=== PATIENT | male | born 1930 | race Asian ===

== ENCOUNTER 2018-05-16 16:38 | Emergency (ER) | payer MEDICARE, BC ==
[~2018-05-16] VITALS: Ht 160 cm; Wt 50.0 kg
[2018-05-16] MEDS ORDERED: ACETAMINOPHEN 500 MG TAB PO STA (16:44)
[2018-05-16 16:45] VITALS: Ht 160 cm; Wt 50.0 kg
--- NOTE | 2018-05-16 16:48 | ERD ---
ER Documentation Chief Complaint Chief Complaint fall with head injury HPI This is a very pleasant 87-year-old gentleman who presents via EMS after mechanical trip and fall. He states that he was at a local [place] and tripped over a chain falling forward. He hit his head on the ground. His only complaint is mild 5 out of 10 throbbing frontal headache. He denies loss of consciousness. No anticoagulation. The patient denies any wrist pain elbow pain arm pain or shoulder pain, no knee pain or ankle pain. Unknown tetanus status. He denies any prodrome of chest pain or shortness of breath. ROS All systems reviewed and are negative except as per history of present illness. Medications Home Meds Reported Medications Febuxostat* (Uloric*) 40 Mg Tablet, 40 MG PO DAILY, TAB 05/16/18 Spironolactone* (Aldactone*) 25 Mg Tablet, 25 MG PO DAILY, #30 TAB 05/16/18 Ropinirole Hcl* (Ropinirole Hcl*) 0.5 Mg Tablet, 0.5 MG PO HS, TAB 05/16/18 Prednisone* (Prednisone*) 5 Mg Tab, 5 MG PO DAILY, TAB 05/16/18 Furosemide* (Furosemide*) 40 Mg Tablet, 40 MG PO DAILY, TAB 05/16/18 Carvedilol* (Carvedilol*) 3.125 Mg Tablet, 3.125 MG PO BID, #60 TAB 05/16/18 Allergies Allergies: Coded Allergies: egg (Verified Allergy, Unknown, 05/16/18) levofloxacin (Verified Allergy, Unknown, 05/16/18) Uncoded Allergies: EMBREL (Allergy, Unknown, 05/16/18) GI CONTRAST (Allergy, Unknown, 05/16/18) SEAFOOD (Allergy, Unknown, 05/16/18) FmHx Family History: No diabetes Physical Exam Vitals Vital Signs Date Temp Pulse Resp B/P (MAP) Pulse Ox O2 O2 Flow FiO2 Time Delivery Rate 05/16/18 98.7 100 16 154/70 99 16:45 (98) Physical Exam Airway is intact Bilateral breath sounds Strong distal pulses No obvious deficits General: Well developed, well nourished, no acute distress Head: Very large abrasion to the frontal forehead. There is an oblique deeper abrasion noted in the superior portion of the abrasion that originally appeared to be a laceration however after thorough irrigation this wound does not open. This is not consistent with a laceration and only a deeper abrasion. No indication for suture or Dermabond repair. Eyes: Pupils equally reactive, EOM intact ENT: Moist mucous membranes abrasion over the nasal bridge without focal tenderness, no tenderness to the mid face, normal jaw opening closing, no dental injury Neck: Supple, no lymphadenopathy, No midline tenderness, deformities, step-offs to the cervical spine, full active and passive range of motion without midline pain. Respiratory: Lungs clear bilaterally, no distress, no chest wall tenderness, no crepitus Cardiovascular: RRR, no murmurs, rubs, or gallops Abdominal: Soft, non-tender, non-distended, no peritoneal signs, pelvis is stable : Deferred MSK: No edema, no unilateral swelling, 5/5 strength, no midline tenderness defor mities or step-offs to the thoracolumbar spine Neurologic: Alert and oriented, moving all extremities, normal speech, no focal weakness, no cerebellar signs Skin: No ecchymoses or bruising to the chest or abdomen Psych: Normal mood Results 24 hrs Current Medications Medications Dose Sig/Valentine Start Time Status Last (Trade) Ordered Route PRN Stop Time Admin Dose Reason Admin Diphtheria/ 0.5 ml ONCE ONCE 05/16/18 DC 05/16/18 Tetanus/Acell IM* 17:00 17:10 Pertussis 05/16/18 17:01 (Adacel) 1,000 mg ONCE STAT 05/16/18 DC 05/16/18 Acetaminophen PO 16:44 17:10 (Tylenol 05/16/18 16:45 Tab) Procedures/MDM EKG, MONITORS, & DIAGNOSTIC IMAGING: CT brain: No acute process per radiologist read CT facial bone: No acute process per radiologist read MEDICAL DECISION MAKING: Very clearly mechanical trip and fall without prodrome or signs or symptoms concerning for syncope, seizure, arrhythmia, stroke. The patient has evidence of large forehead abrasion. Patient will benefit from localized wound care, tetanus to be updated. Based on the patient's age CT imaging of the head and facial bones is appropriate. The patient does not meet high-risk criteria and based on NEXUS cervical spine criteria there is no indication for cervical spine imaging at this time. No evidence of extremity injury. No signs or symptoms concerning for central cord. ER COURSE: * Wound care provided. Tylenol provided. Tetanus updated. * CT imaging is negative for acute injury. * The patient is ambulatory can be safely discharged CONSULTATION: [None] DISPOSITION PLAN: The patient does not have an identifiable emergent medical condition that warrants inpatient hospitalization at this time. The patient is deemed safe for discharge with outpatient follow-up. We discussed follow up with the patient's primary care doctor within 24 to 48 hours as needed. We also discussed return to the emergency room for worsening symptoms or worsening condition. Outpatient referral: [None required] Discharge Medications: Motrin OTC Departure Diagnosis: Primary Impression: Closed head injury Encounter type: initial encounter Qualified Codes: S09.90XA - Unspecified injury of head, initial encounter Additional Impression: Forehead abrasion Encounter type: initial encounter Qualified Codes: S00.81XA - Abrasion of other part of head, initial encounter Condition: Stable ANI GUIDO MD May 16, 2018 16:48
[2018-05-16] MEDS ORDERED: DIPHTH/TET/ACEL PERTUSS (ADULT) 0.5 ML VIAL IM* ONE (17:00)
[2018-05-16] MEDS ORDERED: CARV3.1260 PO (17:14)
[2018-05-16] MEDS ORDERED: PRED5TAB PO (17:14)
[2018-05-16] MEDS ORDERED: FURO40TA4 PO (17:14)
[2018-05-16] MEDS ORDERED: ROPI0.5T2 PO (17:15)
[2018-05-16] MEDS ORDERED: SPIR25TA PO (17:16)
[2018-05-16] MEDS ORDERED: FEBU40TA PO (17:18)
[2018-05-16 18:07] VITALS: BP 140/68; PULSE 72; RESP 16
== END 2018-05-16 18:11 | disposition home or self-care (01) ==
LOC: E/R 16:38
DX: S00.81XA Abrasion of other part of head, initial encounter (principal); R51 Headache; W01.198A Fall on same level from slipping, tripping and stumbling with subsequent striking against other object, initial encounter; Y92.510 Bank as the place of occurrence of the external cause; Z23 Encounter for immunization
CPT/HCPCS: 70450; 70486; 90471; 90715